=== PATIENT | male | born 1935 | race Caucasian/White ===

== ENCOUNTER 2019-05-02 12:45 | Emergency (ER) | payer MEDICARE, OTHER ==
[~2019-05-02] VITALS: Ht 165.1 cm; Wt 71.3 kg
[2019-05-02 15:12] VITALS: BP 129/64
== END 2019-05-02 15:31 | disposition home or self-care (01) ==
LOC: ED 15:15
DX: K94.21 Gastrostomy hemorrhage (principal)
CPT/HCPCS: 99283